=== PATIENT | female | born 1995 | race American Indian/Alaskan Native ===

== ENCOUNTER 2021-04-12 08:49 | Emergency (ER) | payer SELFPAY ==
[2021-04-12 10:14] LABS: Hematocrit 32.3 % (30.3-42.9); Mean Corpuscular HGB Conc 31 % (30-34); Mean Corpuscular Volume 70 fl (79-97); Platelet Count 248 K/mm3 (140-440); Red Cell Distribution Width 18.8 % (13.2-15.2)
[2021-04-12 10:31] LABS: Alanine Aminotransferase 9 units/L (7-56); Albumin 4.5 g/dL (3.9-5); Blood Urea Nitrogen 15 mg/dL (7-17); Calcium 8.8 mg/dL (8.4-10.2); Hemolysis Index 4
[2021-04-12 10:51] LABS: BUN/Creatinine Ratio 21
[2021-04-12 12:05] LABS: Band Neutrophils # (Manual) 0.1 K/mm3; Total Cells Counted 100
[2021-04-12 12:11] LABS: Ovalocytes Few
[2021-04-12 12:12] LABS: Giant Platelets Rare; Platelet Estimate Consistent w Auto
[2021-04-12] MEDS ORDERED: ACETAMINOPHEN 325 MG TAB PO ONE (12:31)
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
[2021-04-12 12:48] LABS: Bacteria,Urine 3+ /HPF (Negative); Bilirubin,Urine NEG (Negative); Blood,Urine NEG (Negative); Color,Urine Yellow (Yellow); Mucus,Urine FEW /HPF; Protein,Urine <15 mg/dL mg/dL (Negative); Urobilinogen,Urine < 2.0 mg/dL (<2.0)
[2021-04-12 14:18] VITALS: BP 111/63
--- NOTE | 2021-04-14 21:32 | Electrocardiograph Report ---
[facility] Test Date: 2021-04-12 Test Time: 09:45:17 Pat Name: SONYA NGUYEN Department: Room: Gender: F [employer]: TV : 1995 Requested By: HILLARY MCCORMICK Order Number: [id number] Reading MD: Jose Cruz Knox Measurements Intervals [place] Rate: 74 P: 51 UT: 140 QRS: 65 QRSD: 93 T: 41 QT: 388 QTc: 431 Interpretive Statements Sinus rhythm No previous ECG available for comparison Electronically Signed On 04-14-2021 21:32:24 EDT by Jose Cruz Knox
== END 2021-04-12 14:17 | disposition home or self-care (01) ==
LOC: ED 08:49
DX: N39.0 Urinary tract infection, site not specified (principal); R53.83 Other fatigue; R51.9 Headache, unspecified; Z79.899 Other long term (current) drug therapy
CPT/HCPCS: 36415; 80053; 80320; 81001; 84484; 84703; 85007; 85025; 87076; 87086; 87186; 93005; 99283; G0480